=== PATIENT | male | born 1970 | race Caucasian/White ===

== ENCOUNTER 2019-10-30 07:54 | Observation (INO) | payer SELFPAY ==
[2019-10-30] VITALS (15 sets, daily range): BP systolic 90–155; BP diastolic 51–94; PULSE 55–97; RESP 15–18; TEMP 35.9–36.9; O2SAT 92–99; BMI 21.8
--- NOTE | ~2019-10-30 | CT_ITS ---
EXAMINATION: CT abdomen pelvis w con DATE: 10/30/2019 08:45 INDICATION: Right lower quadrant abdominal pain TECHNIQUE: Computed tomography (CT) of the abdomen and pelvis was performed with 100 cc Omnipaque 350 intravenous contrast. Automated exposure control and iterative reconstruction technique were employe d. Exam dose: 319.67 mGy-cm total exam DLP. COMPARISON: 12/02/2012 CT chest abdomen pelvis FINDINGS: There is dilatation of the appendix up to at least 9 mm, with abnormal mucosal enhancement of the appendix. Appendiceal wall may not be entirely intact; a portion of the wall appears thinned o r absent, without wall enhancement, suggesting perforation. There is prominent periappendiceal fat st randing/phlegmon, without obvious abscess collection. No intraperitoneal free air is evident. There i s a small free fluid collection in the lower dependent pelvis. The findings are consistent with appen dicitis, with suspected perforation. Heart size is normal. There is no pericardial or pleural effusion. The liver, spleen, pancreas, and adrenal glands and kidneys are unremarkable. Normal caliber of the a bdominal aorta. No intraperitoneal or retroperitoneal or pelvic mass lesion or adenopathy is detected . The urinary bladder is unremarkable. There is mild prostate enlargement and calcification. No bowel obstruction. Small fat-containing umbilical hernia. No inguinal hernia is evident. 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 IMPRESSION: Appendicitis with prominent surrounding inflammation; perforation is suspected Dr. Holm telephoned the report to emergency room physician Dr. Yarbrough and 11/16/2019 at 0904 hours. Reviewed, dictated and finalized at [facility]. Reviewed, dictated and finalized at [facility]. IMPRESSION: Appendicitis with prominent surrounding inflammation; perforation is suspected Dr. Holm telephoned the report to emergency room physician Dr. Yarbrough and 11/15 at 0904 hours.
[2019-10-30 08:13] LABS: Basophils Absolute Auto 0.1 K/mm3 (0.0-0.1); Basophils Percent Auto 0.5 % (0.2-1.2); Eosinophils Absolute Auto 0.1 K/mm3 (0-0.3); Eosinophils Percent Auto 0.8 % (0-4.4); Hematocrit 47.1 % (42.0-52.0); Hemoglobin 15.9 g/dL (14.0-18.0); Immature Granulocyte Absolute 0.03 K/mm3 (0.00-0.031); Immature Granulocyte Percent A 0.3 % (0-0.5); Lymphocytes Absolute Auto 1.34 K/mm3 (0.9-3.2); Lymphocytes Percent Auto 14.5 % (18.3-44.2); Mean Corpuscular HGB Conc 33.8 g/dl (32-36); Mean Corpuscular Hemoglobin 29.3 pg (26-34); Mean Corpuscular Volume 86.9 fl (80-100); Mean Platelet Volume 9.6 fl (7.4-10.4); Monocytes Absolute Auto 0.8 K/mm3 (0.1-0.6); Monocytes Percent Auto 8.9 % (2.6-8.5); Neutrophils Absolute Auto 6.9 K/mm3 (1.3-6.7); Platelet Count Result 206 k/mm3 (150-375); Red Blood Count 5.42 M/mm3 (4.6-6.20); Red Cell Distribution Width 13.4 % (11.5-14.5); White Blood Count 9.3 K/mm3 (4.5-10.0)
[2019-10-30] MEDS: SODIUM CHLORIDE 0.9% IV 1,000 ML 999 ML IV CONT (08:20)
[2019-10-30 08:21] LABS: Add Urine Microscopic? NO; Appearance Urine Clear (Clear); Bilirubin Urine Negative (Negative); Blood Urine Negative (Negative); Color Urine Straw (Yellow); Glucose Urine UA Negative (Negative); Ketones Urine Negative (Negative); Leukocyte Esterase Ur Negative LEU/UL (Negative); Nitrate Urine Negative (Negative); Protein Urine Negative (Negative); Urobilinogen Urine Negative mg/dL (<2.0)
[2019-10-30] MEDS: MORPHINE SULFATE 4 MG/ML INJ IV PUSH ×2 (08:25→11:21)
[2019-10-30 08:28] LABS: Alanine Aminotransferase 13 U/L (4-50); Albumin Level 4.5 g/dL (3.5-5.1); Alkaline Phosphatase 75 U/L (38-126); Aspartate Amino Transferase 20 U/L (17-59); Bilirubin,Total 0.6 mg/dL (0.2-1.3); Blood Urea Nitrogen 7 mg/dL (9-20); Calcium 9.2 mg/dL (8.4-10.2); Carbon Dioxide 29 mmol/L (22-30); Chloride 101 mmol/L (98-107); Estimated CRCL calculation 86 ml/min; Estimated Glomerular Filt Rate > 60; Glucose 100 mg/dL (75-110); Lipase 43 U/L (23-300); Potassium 4.3 mmol/L (3.4-5.0); Sodium 136 mmol/L (137-145)
--- NOTE | 2019-10-30 08:38 | ED.ABDPAIN ---
HPI - Abdominal Pain General Chief Complaint: Abdominal Pain Stated Complaint: abd pain Time Seen by Provider: 10/30/19 08:11 History of Present Illness HPI narrative: Patient is a 49-year-old male who presents ER with right lower quadrant abdominal pain. Persistent over the last 3 days. Worse with movement. Reports mild constipation no fever/chills/nausea/vomiting/sweats. Has not had similar pain before. Has found no alleviating factors. No urinary symptoms. No radiation of the pain. Patient reports a small bowel movement today and last bowel movement was a couple days ago. Related Data Home Medications Medication Instructions Recorded Confirmed No Home Medications 10/30/19 10/30/19 Allergies Allergy/AdvReac Type Severity Reaction Status Date / Time No Known Allergies Allergy Verified 10/30/19 08:18 Review of Systems Review of Systems: All systems reviewed & are unremarkable except as noted in HPI and below Constitutional: Constitutional: Denies chills, Denies fever(s) and Denies weakness Gastrointestinal: Gastrointestinal: Reports abdominal pain, Reports constipation, Denies diarrhea, Denies nausea and Denies vomiting Genitourinary: Genitourinary: Denies hematuria, Denies oliguria and Denies dysuria PMFSH Past Medical History Medical History (Updated 10/30/19 @ 09:22 by Denis Yarbrough MD) Healthy adult male Surgical History Surgical History (Updated 10/30/19 @ 08:39 by Denis Yarbrough MD) No history of previous surgery Family History Family History (Updated 11/15/12 @ 14:22 by DOCTOR UNKNOWN) Other Diabetes mellitus Family history of cardiovascular disease Hypertension Social History Social History (Updated 10/30/19 @ 08:39 by Denis Yarbrough MD) Smoking status: Current every day smoker Alcohol intake: current Exam Narrative: Exam Narrative: GENERAL: Well-appearing, well-nourished, and in no acute distress. HEAD: Normocephalic, atraumatic. CHEST: Clear to auscultation. No respiratory distress. HEART: Regular rate and rhythm. Normal peripheral pulses. ABDOMEN: Soft, tender to palpation the right lower quadrant with guarding at McBurney's point, nondistended, normal active bowel sounds. EXTREMITIES: Normal range of motion. No edema. SKIN: Warm, dry, no rash. NEURO: Alert and oriented x3. PSYCH: Normal mood and affect. Course Course Emergency Course: Patient informed of results. Pain nearly resolved with morphine. Dr. Muniz consulted and will admit patient primarily. Patient will receive Zosyn. Vital Signs Vital signs: Vital Signs Temperature 97.7 F 10/30/19 08:00 Pulse Rate 69 10/30/19 08:00 Respiratory Rate 16 10/30/19 08:00 Blood Pressure 155/94 H 10/30/19 08:00 Pulse Oximetry 98 10/30/19 08:00 Temperature 97.7 F 10/30/19 08:00 Pulse Rate 69 10/30/19 08:00 Respiratory Rate 16 10/30/19 08:00 Blood Pressure 155/94 H 10/30/19 08:00 Pulse Oximetry 98 10/30/19 08:00 MDM - Abdominal Pain Lab Data Result diagrams: 10/30/19 08:06 10/30/19 08:06 Labs: Lab Results 10/30/19 10/30/19 10/30/19 Range/Units 08:06 08:06 08:14 WBC 9.3 (4.5-10.0) K/mm3 RBC 5.42 (4.6-6.20) M/mm3 Hgb 15.9 (14.0-18.0) g/dL Hct 47.1 (42.0-52.0) % MCV 86.9 (80-100) fl MCH 29.3 (26-34) pg MCHC 33.8 (32-36) g/dl RDW 13.4 (11.5-14.5) % Plt Count 206 (150-375) k/mm3 MPV 9.6 (7.4-10.4) fl Immature Gran % (Auto) 0.3 (0-0.5) % Neut % (Auto) 75.0 H (45.5-73.1) % Lymph % (Auto) 14.5 L (18.3-44.2) % [place] % (Auto) 8.9 H (2.6-8.5) % Eos % (Auto) 0.8 (0-4.4) % Baso % (Auto) 0.5 (0.2-1.2) % Lymph # (Auto) 1.34 (0.9-3.2) K/mm3 [place] # (Auto) 0.8 H (0.1-0.6) K/mm3 Eos # (Auto) 0.1 (0-0.3) K/mm3 Baso # (Auto) 0.1 (0.0-0.1) K/mm3 Abs Immat Gran (auto) 0.03 (0.00-0.031) K/mm3 Absolute Neuts (auto) 6.9 H (1.3-6.7)
--- NOTE | 2019-10-30 10:51 | ADMGEN ---
This patient, Juan Luis Rushing, was admitted to Medical Room 261-01. Patient/family oriented to hospital policies and general routines including ID bracelet, bed and alarms, visiting hours, pain management, procedures, bathroom and other care routines, personal items, smoking policy, room service/diet, and visiting hours. Valuables list has been completed. Information on how to activate the Rapid Response Team has been discussed. Patient/Family are encouraged to report perceived risks to care and to ask questions if they do not understand what they are told or what they should do.
[2019-10-30] MEDS: SODIUM CHLORIDE 0.9% IV 1,000 ML 125 ML IV CONT (11:19)
[2019-10-30] MEDS: LACTATED RINGERS 1,000 ML 30 ML IV CONT (13:15)
--- NOTE | 2019-10-30 13:38 | WPDANESEPPF ---
Anes - Initial Pre Proc Eval Procedure: Operation Date: 10/30/19 14:00 Proposed Procedures p Laparoscopic Appendectomy - Omari Muniz DO Date/Time: 10/30/19 13:38 Surgeon: Omari Muniz DO Pre Op Diagnosis: appendicitis Patient Data Age: 49 Gender: M Height: 5 ft 11 in Weight: 71.1 kg Last Vital Signs Temp 36.4 C 10/30/19 13:06 Pulse 55 L 10/30/19 13:06 Resp 16 10/30/19 13:06 BP 101/64 10/30/19 13:06 Pulse Ox 99 10/30/19 13:06 Allergies Allergy/AdvReac Type Severity Reaction Status Date / Time No Known Allergies Allergy Verified 10/30/19 08:18 Home Medications Medication Instructions Recorded Confirmed Type No Home Medications 10/30/19 10/30/19 History Laboratory Tests 10/30/19 10/30/19 10/30/19 08:06 08:06 08:14 WBC 9.3 K/mm3 K/mm3 (4.5-10.0) RBC 5.42 M/mm3 M/mm3 (4.6-6.20) Hgb 15.9 g/dL g/dL (14.0-18.0) Hct 47.1 % % (42.0-52.0) MCV 86.9 fl fl (80-100) MCH 29.3 pg pg (26-34) MCHC 33.8 g/dl g/dl (32-36) RDW 13.4 % % (11.5-14.5) Plt Count 206 k/mm3 k/mm3 (150-375) MPV 9.6 fl fl (7.4-10.4) Immature Gran % (Auto) 0.3 % % (0-0.5) Neut % (Auto) 75.0 % H % (45.5-73.1) Lymph % (Auto) 14.5 % L % (18.3-44.2) [place] % (Auto) 8.9 % H % (2.6-8.5) Eos % (Auto) 0.8 % % (0-4.4) Baso % (Auto) 0.5 % % (0.2-1.2) Lymph # (Auto) 1.34 K/mm3 K/mm3 (0.9-3.2) [place] # (Auto) 0.8 K/mm3 H K/mm3 (0.1-0.6) Eos # (Auto) 0.1 K/mm3 K/mm3 (0-0.3) Baso # (Auto) 0.1 K/mm3 K/mm3 (0.0-0.1) Abs Immat Gran (auto) 0.03 K/mm3 K/mm3 (0.00-0.031) Absolute Neuts (auto) 6.9 K/mm3 H K/mm3 (1.3-6.7) Absolute Nucleated RBC 0.0 K/mm3 K/mm3 (0.0-0.012) Nucleated RBC % 0.0 % % (0.0-0.2) Sodium 136 mmol/L L mmol/L (137-145) Potassium 4.3 mmol/L mmol/L (3.4-5.0) Chloride 101 mmol/L mmol/L (98-107) Carbon Dioxide 29 mmol/L mmol/L (22-30) BUN 7 mg/dL L mg/dL (9-20) Creatinine 0.90 mg/dL mg/dL (0.7-1.3) Estim Creat Clear Calc 86 ml/min ml/min Estimated GFR > 60 (59 - ) Glucose 100 mg/dL mg/dL (75-110) Calcium 9.2 mg/dL mg/dL (8.4-10.2) Total Bilirubin 0.6 mg/dL mg/dL (0.2-1.3) AST 20 U/L U/L (17-59) ALT 13 U/L U/L (4-50) Alkaline Phosphatase 75 U/L U/L (38-126) Total Protein 8.0 g/dL g/dL (6.3-8.2) Albumin 4.5 g/dL g/dL (3.5-5.1) Lipase 43 U/L U/L (23-300) Urine Color Straw (Yellow) Urine Appearance Clear (Clear) Urine pH 8.0 (5.0-9.0) Ur Specific [place] 1.010 (1.001-1.035) Urine Protein Negative mg/dL mg/dL (Negative) Urine Glucose (UA) Negative mg/dL mg/dL (Negative) Urine Ketones Negative mg/dL mg/dL (Negative) Ur Blood (Man) Negative (Negative) Urine Nitrate Negative (Negative) Urine Bilirubin Negative (Negative) Urine Urobilinogen Negative mg/dL mg/dL (<2.0) Leukocyte Esterase Rfl Negative VIVIEN/UL VIVIEN/UL (Negative) Patient hx anesthesia problems: none Family hx anesthesia problems: none PMFSH Past Medical History Medical History Healthy adult male Smoker Tobacco abuse Surgical History Surgical History No history of previous surgery Family History Family History Other Diabetes mellitus Family history of cardiovascular disease Hypertension Social History Social History (Reviewed 10/30/19 @ 13:39
--- NOTE | 2019-10-30 14:14 | PM.IMHP ---
H&P: HPI History of Present Illness Chief complaint: appendicitis Narrative: Juan Luis Rushing is a 49 year old male Who presented to the emergency department this morning with right lower quadrant abdominal pain for the past 3 days. States it started as vague abdominal pain and felt like he had to have a bowel movement, but then pain worsened and localized to the right lower quadrant. He denies any fevers, nausea, or vomiting. He has never experienced pain like this in the past. Review of Systems Review of Systems: All systems reviewed & are unremarkable except as noted in HPI and below Eyes: Eyes: Denies change in vision ENT: Denies hearing loss, Denies neck pain and Denies sore throat Cardiovascular: Cardiovascular: Denies chest pain and Denies dyspnea Respiratory: Respiratory: Denies cough, Denies dyspnea and Denies wheezing Gastrointestinal: Gastrointestinal: Reports as per HPI Genitourinary: Genitourinary: Denies hematuria and Denies dysuria Musculoskeletal: Musculoskeletal: Denies arthralgias, Denies joint swelling and Denies neck pain Allergic/Immunologic: Allergic/Immunologic: Denies wheezing PMFSH Past Medical History Medical History Healthy adult male History of anal cancer Smoker Tobacco abuse Surgical History Surgical History No history of previous surgery Family History Family History Other Diabetes mellitus Family history of cardiovascular disease Hypertension Social History Social History Smoking packs per day: 1 Smoking cigarettes per day: 20.0 Years smoked: 34 Smoking pack-years: 34.00 Smoking status: Current every day smoker Tobacco type: cigarettes Alcohol intake: current Drinks per week: 12 Substance use: never Gender identity (if verbalized by the patient): Male Spiritual care concerns: No Meds Home Medications and Allergies Home Medications Medication Instructions Recorded Confirmed Type No Home Medications 10/30/19 10/30/19 History Allergies Allergy/AdvReac Type Severity Reaction Status Date / Time No Known Allergies Allergy Verified 10/30/19 08:18 Vital Signs Vital Signs - 24 hr 10/30/19 08:00 10/30/19 09:00 10/30/19 09:50 Temperature 36.5 C Pulse Rate 69 62 64 Respiratory Rate 16 16 16 Blood Pressure 155/94 H 125/77 112/71 Pulse Oximetry 98 97 97 10/30/19 10:10 10/30/19 10:50 10/30/19 13:06 Temperature 36.2 C L 36.4 C Pulse Rate 63 55 L 55 L Respiratory Rate 16 16 16 Blood Pressure 116/67 101/64 101/64 Pulse Oximetry 96 99 99 Exam Const: General: no acute distress and alert; No acute distress Orientation/consciousness: patient oriented x3 Limitations: no limitations HENMT: Head: normocephalic and atraumatic Ears: hearing grossly normal bilaterally General nose exam: Normal external nose present and Normal nares present Mouth: Yes Normal oral and palatal mucosa present and Yes moist mucous membranes Eyes: General: appearance normal, both eyes and all related structures Conjunctivae: conjunctivae normal Sclera: sclerae normal Pupils: Equal, round and reactive pupils present EOM: EOMs intact bilaterally Neck: Neck: normal visual inspection, full ROM, no lymphadenopathy, supple and no JVD Lymphatic: no lymphadenopathy noted Chest: Chest palpation & inspection: normal inspection of the chest Resp: Effort & Inspection: normal respiratory effort and able to speak in complete sentences Auscultation: clear to auscultation bilaterally Percussion: percussion normal Cardio: Jugular venous distension: no JVD Rate: regular rate Rhythm: regular rhythm Heart sounds: S1 normal heart sound present and S2 normal heart sound present Peripheral pulses: Peripheral pulses 2+ throughout GI: I
[2019-10-30] MEDS: BUPIVACAINE/EPINEPHRINE 0.5% 30 ML VIAL INFILTRATE (15:00)
--- NOTE | 2019-10-30 15:24 | PM.PROC ---
Procedure Note - Detailed Date of procedure: 10/30/19 Pre-op diagnosis: appendicitis Post-op diagnosis: same (Acute perforated appendicitis) Procedure performed: Laparoscopic Appendectomy Description of procedure: Procedure as well as risks, benefits, and alternatives were explained to the patient. The patient agreed to proceed. Written consent was obtained and placed in chart prior to procedure. The patient was brought back to surgical suite. He was placed supine on operating table. Time-out was done to confirm the patient and procedure. The patient was then intubated by the Anesthesia Department. His abdomen was prepped and draped in sterile fashion using chlorhexidine prep. A 12 mm incision was made at the inferior portion of the umbilicus. Blunt dissection was carried out down to the linea alba. The linea alba was then incised using a 15 blade scalpel. Then bluntly entered into the peritoneal cavity. A 12 mm trocar was then inserted, and carbon dioxide insufflation was used to create a pneumoperitoneum. The camera was inserted and the abdomen was inspected. No immediate abnormalities were identified. The patient was then placed in slight Trendelenburg position and rotated to the left. A 5 mm incision was made in the suprapubic region in midline and a 5 mm trocar was inserted under direct visualization. A 5 mm incision was made in the left lower quadrant and a 5 mm trocar was inserted under direct visualization. The right lower quadrant was carefully inspected. The cecum was identified and then this was traced back to the appendix. The appendix was identified and grasped at the mesoappendix and lifted anteriorly. Careful blunt dissection was carried out at the base of the appendix through the mesoappendix using a [place] grasper. An Endo-JESU 45 mm blue load stapler was then advanced across the base of the appendix and clamped and fired. A white reload was then clamped across the mesoappendix and fired. This freed up our appendix completely. It was then placed in an EndoCatch bag and removed through the left lower quadrant port. The staple lines were then inspected. Hemostasis appeared adequate and the staple lines appeared secure. The area was then irrigated with sterile saline. The pelvis was then carefully inspected and irrigated with sterile saline as well and the remainder of the abdomen was carefully inspected. The patient was then flattened out in bed. One final inspection was made around the abdominal cavity and no other abnormalities were seen. The ports were then removed under direct visualization. The camera was removed and the pneumoperitoneum was released. The fascia of the umbilical incision was reapproximated using an 0 Vicryl [id number] suture. 0.5% bupivacaine with epinephrine was infiltrated locally around each of the incisions. The skin of the incisions was then approximated using 4-0 Monocryl subcuticular suture and Exofin glue was applied on top. The patient was then awakened from anesthesia, extubated, and transferred to Recovery. Anesthesia: GETA and local (0.5% bupivicaine with epi) Surgeon: Omari Muniz DO Estimated blood loss (mL): 5 Pathology: yes (Appendix) Complications: No immediate complications Condition: stable Disposition: floor Findings: This is a 49-year-old man who presented to the emergency department with right lower quadrant pain over the past few days. He came to the emergency department this morning and a CT of his abdomen and pelvis was obtained and this showed evidence of acute appendicitis with suspicion for possible perforation. Was started on broad-spectrum IV antibiotics, and laparoscopic appendectomy was recommended. Laparoscopic appendectomy was performed. The patient had evidence of acute appendicitis and likely rupture along the midportion of the appendix. The base of the appendix appeared healthy and viable. There did not appear to be significant purulence fluid around
--- NOTE | 2019-10-30 15:57 | SUR.PHASEI ---
PT ATTEMPTING TO VOID USING URINAL
[2019-10-30] MEDS: IBUPROFEN 600 MG TABLET PO (18:26)
[2019-10-31] MEDS: IBUPROFEN 600 MG TABLET PO (01:12)
[2019-10-31 02:06] VITALS: BP 103/53; PULSE 61; RESP 16; TEMP 36.7; O2SAT 94
[2019-10-31 05:37] VITALS: BP 97/49; PULSE 62; RESP 16; TEMP 36.4; O2SAT 96
[2019-10-31 06:08] LABS: Hematocrit 39.1 % (42.0-52.0); Hemoglobin 13.2 g/dL (14.0-18.0); Mean Corpuscular HGB Conc 33.8 g/dl (32-36); Mean Corpuscular Hemoglobin 29.1 pg (26-34); Mean Corpuscular Volume 86.1 fl (80-100); Mean Platelet Volume 10.2 fl (7.4-10.4); Platelet Count Result 156 k/mm3 (150-375); Red Blood Count 4.54 M/mm3 (4.6-6.20); Red Cell Distribution Width 13.2 % (11.5-14.5); White Blood Count 5.9 K/mm3 (4.5-10.0)
--- NOTE | 2019-10-31 07:41 | PM.DS ---
DS: Admitting Diagnosis Admitting Diagnosis Admitting Diagnosis: Acute appendicitis with localized peritonitis, without perforation or gangrene DS: Discharge Diagnosis Discharge Diagnosis (1) Acute appendicitis with localized peritonitis: Qualifiers: Appendicitis gangrene presence: unspecified whether gangrene present Appendicitis perforation presence: with perforation Appendicitis abscess presence: without abscess Qualified Code(s): K35.32 - Acute appendicitis with perforation and localized peritonitis, without abscess Code(s): K35.30 - Acute appendicitis with localized peritonitis, without perforation or gangrene Status: Acute DS: Summary Hospital Course Reason for hospitalization: appendicitis Hospital Course: 49 yo presented with RLQ pain and found to have appendicitis. Admitted and started on Zosyn, and decision was made to proceed with urgent laparoscopic appendectomy. Was found to have signs of perforation and phlegmon but no abscess. Surgery was uncomplicated and patient returned to surgical floor postop. Diet and activity advanced as tolerated. He was doing well on POD#1 and remained afebrile. WBC improved. He was discharged on POD#1. Status at Discharge Functional status at discharge: independent ambulation Overall status at discharge: patient is progressing back to baseline Time Spent with Patient Time attestation: Total time spent providing and/or coordinating discharge services: Time spent: Less than 30 minutes Exam Const: General: no acute distress Resp: Auscultation: clear to auscultation bilaterally Cardio: Rate: regular rate Rhythm: regular rhythm GI: GI Palp: Yes Soft to palpation and Yes Tenderness to palpation present (GI) (incisional) Other: Incisions dry and intact DS: Data Data Completed and Pending Pending studies at discharge: Pending at discharge 10/30/19 14:58 Surgical [PTH] Routine Labs on day of discharge: Labs from last 24 hours 10/31/19 10/30/19 10/30/19 05:46 08:14 08:06 WBC 5.9 RBC 4.54 L Hgb 13.2 L Hct 39.1 L MCV 86.1 MCH 29.1 MCHC 33.8 RDW 13.2 Plt Count 156 MPV 10.2 Immature Gran % (Auto) Neut % (Auto) Lymph % (Auto) [place] % (Auto) Eos % (Auto) Baso % (Auto) Lymph # (Auto) [place] # (Auto) Eos # (Auto) Baso # (Auto) Abs Immat Gran (auto) Absolute Neuts (auto) Absolute Nucleated RBC Nucleated RBC % Sodium 136 L Potassium 4.3 Chloride 101 Carbon Dioxide 29 BUN 7 L Creatinine 0.90 Estim Creat Clear Calc 86 Estimated GFR > 60 Glucose 100 Calcium 9.2 Total Bilirubin 0.6 AST 20 ALT 13 Alkaline Phosphatase 75 Total Protein 8.0 Albumin 4.5 Lipase 43 Urine Color Straw Urine Appearance Clear Urine pH 8.0 Ur Specific Issue 1.010 Urine Protein Negative Urine Glucose (UA) Negative Urine Ketones Negative Ur Blood (Man) Negative Urine Nitrate Negative Urine Bilirubin Negative Urine Urobilinogen Negative Leukocyte Esterase Rfl Negative 10/30/19 08:06 WBC 9.3 RBC 5.42 Hgb 15.9 Hct 47.1 MCV 86.9 MCH 29.3 MCHC 33.8 RDW 13.4 Plt Count 206 MPV 9.6 Immature Gran % (Auto) 0.3 Neut % (Auto) 75.0 H Lymph % (Auto) 14.5 L [place] % (Auto) 8.9 H Eos % (Auto) 0.8 Baso % (Auto) 0.5 Lymph # (Auto) 1.34 [place] # (Auto) 0.8 H Eos # (Auto) 0.1 Baso # (Auto) 0.1 Abs Immat Gran (auto) 0.03 Absolute Neuts (auto) 6.9 H Absolute Nucleated RBC 0.0 Nucleated RBC % 0.0 Sodium Potassium Chloride Carbon Dioxide BUN Creatinine Estim Creat Clear Calc Estimated GFR Glucose Calcium Total Bilirubin AST ALT Alkaline Phosphatase Total Protein Albumin Lipase Urine Color Urine Appearance Urine pH Ur Specific Issue Urine Protein Urine Glucose (UA) Urine Ketones Ur Blood (Man) Urine Nitrate Urine Bilirubin Urine [place]
--- NOTE | 2019-10-31 07:42 | WPDANESPN ---
Anes - Prog Note Post-Op Date/Time: 10/31/19 07:42 Cardiovascular status: normal Respiratory status: normal Airway patency: baseline Mental status: baseline Post-Op hydration status: normal Vital Signs: Last Vital Signs Temp 36.4 C L 10/31/19 05:37 Pulse 62 10/31/19 05:37 Resp 16 10/31/19 05:37 BP 97/49 L 10/31/19 05:37 Pulse Ox 96 10/31/19 05:37 I/O: Intake & Output 10/30/19 10/30/19 10/31/19 15:59 23:59 07:59 Intake Total 1225 210 300 Output Total 450 700 Balance 1225 240 -400 Laboratory Tests 10/31/19 05:46 10/30/19 08:06 10/30/19 10/30/19 10/30/19 08:06 08:06 08:14 WBC 9.3 RBC 5.42 Hgb 15.9 Hct 47.1 MCV 86.9 MCH 29.3 MCHC 33.8 RDW 13.4 Plt Count 206 MPV 9.6 Immature Gran % (Auto) 0.3 Neut % (Auto) 75.0 H Lymph % (Auto) 14.5 L [place] % (Auto) 8.9 H Eos % (Auto) 0.8 Baso % (Auto) 0.5 Lymph # (Auto) 1.34 [place] # (Auto) 0.8 H Eos # (Auto) 0.1 Baso # (Auto) 0.1 Abs Immat Gran (auto) 0.03 Absolute Neuts (auto) 6.9 H Absolute Nucleated RBC 0.0 Nucleated RBC % 0.0 Sodium 136 L Potassium 4.3 Chloride 101 Carbon Dioxide 29 BUN 7 L Creatinine 0.90 Estim Creat Clear Calc 86 Estimated GFR > 60 Glucose 100 Calcium 9.2 Total Bilirubin 0.6 AST 20 ALT 13 Alkaline Phosphatase 75 Total Protein 8.0 Albumin 4.5 Lipase 43 Urine Color Straw Urine Appearance Clear Urine pH 8.0 Ur Specific [place] 1.010 Urine Protein Negative Urine Glucose (UA) Negative Urine Ketones Negative Ur Blood (Man) Negative Urine Nitrate Negative Urine Bilirubin Negative Urine Urobilinogen Negative Leukocyte Esterase Rfl Negative 10/31/19 05:46 WBC 5.9 RBC 4.54 L Hgb 13.2 L Hct 39.1 L MCV 86.1 MCH 29.1 MCHC 33.8 RDW 13.2 Plt Count 156 MPV 10.2 Immature Gran % (Auto) Neut % (Auto) Lymph % (Auto) [place] % (Auto) Eos % (Auto) Baso % (Auto) Lymph # (Auto) [place] # (Auto) Eos # (Auto) Baso # (Auto) Abs Immat Gran (auto) Absolute Neuts (auto) Absolute Nucleated RBC Nucleated RBC % Sodium Potassium Chloride Carbon Dioxide BUN Creatinine Estim Creat Clear Calc Estimated GFR Glucose Calcium Total Bilirubin AST ALT Alkaline Phosphatase Total Protein Albumin Lipase Urine Color Urine Appearance Urine pH Ur Specific [place] Urine Protein Urine Glucose (UA) Urine Ketones Ur Blood (Man) Urine Nitrate Urine Bilirubin Urine Urobilinogen Leukocyte Esterase Rfl Post-procedural complaints: none Patient Feedback: Patient satisfied with anesthetic care.
== END 2019-10-31 09:30 | disposition home or self-care (01) ==
LOC: ANHED 09:22 → ANH2MED 09:45
PROVIDERS: Admitting Provider Surgery; Emergency Provider Emergency Medicine; Visit Provider Surgery
PROC: 0DTJ4ZZ Resection of Appendix, Percutaneous Endoscopic Approach (ICD-10-PCS; CPT 44970; principal; 2019-10-30 14:00)
DX: K35.30 Acute appendicitis with localized peritonitis, without perforation or gangrene (principal); F17.210 Nicotine dependence, cigarettes, uncomplicated
CPT/HCPCS: 44970; 36415; 74177; 80053; 81003; 83690; 85025; 85027; 88304; 96361; 96365; 96366; 96375; 96376; 99285; A9270; G0378; G0379; J0330; J1100; J1170; J2250; J2270; J2405; J2543; J2704; J3010; J7030; J7120; Q9967

== ENCOUNTER 2023-12-22 07:53 | Emergency (ER) | payer OTHER, SELFPAY ==
--- NOTE | 2023-12-22 07:58 | ECG_ITS ---
Test Date: 2023-12-22 08:08:48 Measurements Intervals [place] Rate: 71 P: 63 RI: 139 QRS: 50 QRSD: 110 T: 57 QT: 398 QTc: 433 Interpretive Statements SINUS RHYTHM BASELINE ARTIFACT- I, III, AVR, AVL, AVF, V1-V6 NORMAL ECG No previous ECG available for comparison Electronically Signed On 12-22-2023 08:28:12 CDT by Jose R Jones D.O.
[2023-12-22 07:59] VITALS: BP 146/87; PULSE 74; RESP 15; TEMP 36.3; O2SAT 99
--- NOTE | 2023-12-22 08:21 | ED.DIZZY ---
HPI - Dizziness General Chief Complaint: Dizziness Stated Complaint: dizzy when laying down x 1 month Time Seen by Provider: 12/22/23 07:58 History of Present Illness HPI Narrative: Patient states that for the past month, sometimes when he lays down, usually when he lays on his right side, or has his head in certain positions, he will have a sensation of being on roller coaster like the room is spinning around him. the sensation goes away when he is in other positions. Related Data Allergies Allergy/AdvReac Type Severity Reaction Status Date / Time No Known Allergies Allergy Verified 12/22/23 08:01 Review of Systems Review of Systems: All systems reviewed & are unremarkable except as noted in HPI and below PMFSH Past Medical History Medical History (Updated 12/22/23 @ 08:20 by Hilary Eduardo MD) Healthy adult male History of anal cancer Smoker Tobacco abuse Surgical History Surgical History No history of previous surgery Family History Family History Other Diabetes mellitus Family history of cardiovascular disease Hypertension Social History Social History Smoking packs per day: 1 Smoking cigarettes per day: 20.0 Years smoked: 34 Smoking pack-years: 34.00 Smoking status: Current every day smoker Tobacco type: cigarettes Alcohol intake: current Drinks per week: 12 Substance use: never Gender identity (if verbalized by the patient): Male Spiritual care concerns: No Exam Narrative: EXAMINATION OF ORGAN SYSTEMS/BODY AREAS: Constitutional: Vital signs per nursing GENERAL:[No acute distress, non-toxic appearing.] HEAD: Normal with no signs of head trauma. EYES: EOMI, conjunctiva normal, no nystagmus ENT: Hearing grossly intact, some ear wax in right ear, left ear clear LUNGS: Nonlabored breathing. HEART: [Regular rate and rhythm] ABD: Nondistended EXT: Normal range of motion SKIN: [No rashes or lesions.] NEURO: [Alert and oriented x 3. No gross focal sensory or strength deficits.] clear speech, ambulating with normal gait PSYCH: Normal affect Course Vital Signs Vital signs: Vital Signs Temperature 97.3 F L 12/22/23 07:59 Pulse Rate 74 12/22/23 07:59 Respiratory Rate 15 12/22/23 07:59 Blood Pressure 146/87 H 12/22/23 07:59 Pulse Oximetry 99 12/22/23 07:59 Oxygen Delivery Room Air 12/22/23 07:59 Temperature 98.0 F 12/22/23 08:34 Pulse Rate 61 12/22/23 08:34 Respiratory Rate 18 12/22/23 08:34 Blood Pressure 109/73 12/22/23 08:34 Pulse Oximetry 98 12/22/23 08:34 Oxygen Delivery Room Air 12/22/23 07:59 Procedures Ear Wax Removal Right Ear: Ear Wax Removal Date: 12/22/23 Cerumenolytic Used: other ( irrigation) Ear Canal Exam: atraumatic Patient Tolerated Procedure: other ( patient thought this was uncomfortable) Technique: ear canal irrigated MDM - Dizziness MDM Narrative Medical decision making narrative: patient presents with sensation of room spinning around him inserted physicians, usually when his right ear is down, otherwise asymptomatic. Completely normal neurologic exam here including no nystagmus or current sensation of vertigo. Given the positional component I suspect most likely BPPV or possibly other peripheral cause, regardless I will have him follow with Neurology with prescription for meclizine as needed, and clean his right ear out here today. return precautions discussed Discharge Plan Discharge Clinical Impression: Vertigo Patient Disposition: Home, Self-Care Condition: Stable Instructions: Antibiotic Form, Vertigo (ED) Additional Instructions: please follow-up with the neurologist and with a primary care doctor. You can take medications as prescribed if you start experienc
[2023-12-22 08:34] VITALS: BP 109/73; PULSE 61; RESP 18; TEMP 36.7; O2SAT 98
== END 2023-12-22 08:36 | disposition home or self-care (01) ==
PROVIDERS: Emergency Provider Emergency Medicine
DX: R42 Dizziness and giddiness (principal); H61.21 Impacted cerumen, right ear; Z85.048 Personal history of other malignant neoplasm of rectum, rectosigmoid junction, and anus; F17.210 Nicotine dependence, cigarettes, uncomplicated
CPT/HCPCS: 69209; 93005; 99283